=== PATIENT | male | born 1945 | race Caucasian/White ===

== ENCOUNTER 2025-01-31 23:25 | Emergency (ER) | payer OTHER ==
[~2025-01-31] VITALS: Ht 182.9 cm; Wt 72.6 kg
[2025-01-31 23:49] LABS: BASOPHILS # (AUTO) 0.1 K/UL (0.0-0.2); BASOPHILS % (AUTO) 1.5 % (0.0-2.0); EOSINOPHILS # (AUTO) 0.2 K/uL (0.0-0.7); EOSINOPHILS % (AUTO) 3.4 % (0.0-7.0); HEMATOCRIT 29.5 % (36.7-47.1); HEMOGLOBIN 9.8 g/dL (12.5-16.3); LYMPHOCYTES # (AUTO) 2.1 K/uL (0.8-4.8); LYMPHOCYTES % (AUTO) 30.3 % (20.5-51.5); MEAN CORPUSCULAR HEMOGLOBIN 32.6 uug (23.8-33.4); MEAN CORPUSCULAR HGB CONC 33 g/dL (32.5-36.3); MEAN CORPUSCULAR VOLUME 98.2 fL (73.0-96.2); MONOCYTES # (AUTO) 0.6 K/uL (0.1-1.30); MONOCYTES % (AUTO) 8.6 % (0.0-11.0); NEUTROPHILS # (AUTO) 3.9 K/uL (1.8-8.9); NEUTROPHILS % (AUTO) 56.2 % (38.5-71.5); PLATELET COUNT (AUTO) 177 K/uL (152-348); RED CELL DISTRIBUTION WIDTH 18.5 % (12.1-16.2)
[2025-01-31 23:58] LABS: DIFFERENTIAL COMMENT 1
[2025-02-01 00:07] LABS: CALCIUM 8.7 mg/dL (8.5-10.1); CARBON DIOXIDE 25 mmol/L (21-32); CHLORIDE 104 mmol/L (98-107); CREATININE 1.6 mg/dL (0.6-1.3); GLUCOSE 112 mg/dL (74-106); POTASSIUM 3.7 mmol/L (3.5-5.1); SODIUM SERUM 141 mmol/L (136-145); UREA NITROGEN, BLOOD 16 mg/dL (7-18)
[2025-02-01 00:20] LABS: ALANINE AMINOTRANSFERASE 17 U/L (16-63); ALBUMIN 2.9 g/dL (3.4-5.0); ALKALINE PHOSPHATASE 155 U/L (50-136); ASPARTATE AMINOTRANSFERASE 22 U/L (15-37); BILIRUBIN,DIRECT 0.3 mg/dL (0.0-0.2); BILIRUBIN,TOTAL 0.9 mg/dL (0.2-1.0); NT-PRO BNP 3156 pg/mL (0-125)
[2025-02-01] MEDS ORDERED: HYDROMORPHONE 1 MG/1 ML DISP.SYRIN ONE (01:06)
[2025-02-01] MEDS ORDERED: ONDANSETRON 4 MG/2 ML VIAL ONE (01:06)
[2025-02-01] MEDS: ONDANSETRON 4 MG/2 ML VIAL IV ONE (01:10)
[2025-02-01] MEDS: HYDROMORPHONE 1 MG/1 ML DISP.SYRIN IV ONE (01:10)
[2025-02-01] MEDS: IV NORMAL SALINE 1000 ML BAG IV ONE (02:21)
[2025-02-01] MEDS ORDERED: LORAZEPAM 2 MG/1 ML VIAL ONE (04:03)
[2025-02-01] MEDS: LORAZEPAM 2 MG/1 ML VIAL IV ONE (04:40)
[2025-02-01 05:24] VITALS: O2SAT 98
[2025-02-01] MEDS ORDERED: ATOR80TA PO (05:24)
[2025-02-01] MEDS ORDERED: SENN8.6T19 PO (05:24)
[2025-02-01] MEDS ORDERED: POTA10CA43 PO (05:24)
[2025-02-01] MEDS ORDERED: APIX5TAB PO (05:24)
[2025-02-01] MEDS ORDERED: FLUO10TA PO (05:24)
[2025-02-01] MEDS ORDERED: COLC0.6T67 PO (05:24)
[2025-02-01] MEDS ORDERED: ALLO100T PO (05:24)
[2025-02-01] MEDS ORDERED: METF-440 PO ×2 (05:24)
[2025-02-01] MEDS ORDERED: DOCU100C36 PO (05:24)
[2025-02-01] MEDS ORDERED: DIGO125T5 PO (05:24)
[2025-02-01] MEDS ORDERED: MIRT7.5T10 PO (05:24)
== END 2025-02-01 05:35 | disposition short-term general hospital (02) ==
LOC: ER 23:25
DX: S06.5XAA Traumatic subdural hemorrhage with loss of consciousness status unknown, initial encounter (principal); S42.411A Displaced simple supracondylar fracture without intercondylar fracture of right humerus, initial encounter for closed fracture; R51.9 Headache, unspecified; E11.9 Type 2 diabetes mellitus without complications; I48.91 Unspecified atrial fibrillation; M19.011 Primary osteoarthritis, right shoulder; Z79.01 Long term (current) use of anticoagulants; Z79.84 Long term (current) use of oral hypoglycemic drugs; Z79.899 Other long term (current) drug therapy; Z86.73 Personal history of transient ischemic attack (TIA), and cerebral infarction without residual deficits; Z96.643 Presence of artificial hip joint, bilateral; W18.39XA Other fall on same level, initial encounter; Y93.89 Activity, other specified; Y92.89 Other specified places as the place of occurrence of the external cause; Y99.8 Other external cause status
CPT/HCPCS: 36415; 70450; 71045; 72125; 72192; 73020; 73070; 84484; 85025; 85730; A4606; A4663; J1171; J2060; J2405; J7040